=== PATIENT | male | born 1950 | race Caucasian/White ===

== ENCOUNTER 2016-09-11 07:19 | Inpatient (IN) | payer OTHER ==
[~2016-09-11] VITALS: Ht 185.4 cm; Wt 108.4 kg
--- NOTE | ~2016-09-11 | EKG ---
[address] [address] ELECTROCARDIOGRAM REPORT Name: YU REAGAN Room #: 304-P ADM IN M.R.#: [id number] Admission: 09/11/16 Attend Phys: Yoel Hernandez DO Discharge: Date of : 46 Report #: [id number] THIS REPORT FOR: //name// [facility] ED Test Date: 2016-09-11 Test Time: 07:39:58 Pat Name: YU REAGAN Department: Room: [facility] Gender: M Organizational Consultant: LUIS Hernández : 1950 Requested By: Marzena Johnson Order Number: [id number] MD: Brenden Guerrero Measurements Intervals [place] Rate: 79 P: NC: QRS: -8 QRSD: 86 T: 55 QT: 378 QTc: 434 Interpretive Statements Atrial fibrillation Inferior infarct, old No previous ECG available for comparison Electronically Signed On 09-11-2016 14:01:52 CDT by Brenden Guerrero [email or web address] <ELECTRONICALLY SIGNED> By: Brenden Guerrero MD 09/11/16 1401 0739 0739 MD DAVID Courtney
--- NOTE | ~2016-09-11 | 2DMMODE ---
[facility] [address] [place] [address] 2 D/M-MODE ECHOCARDIOGRAM Name: YU REAGAN Room #: 304-P [facility]#: [id number] Admission: 09/11/16 Attend Phys: Yoel Hernandez, Discharge: Date of : 46 Date of Service: 09/11/16 1709 Report #: [id number] THIS REPORT FOR: //name// APPROVED REPORT Study performed: 09/11/2016 12:35:37 EXAM: Comprehensive 2D, Doppler, and color-flow Echocardiogram Patient Location: Bedside Room #: 304 Status: routine Other Information Study Quality: Fair Technically limited study due to body habitus. Indications Fatigue Hx Afib, DM, CABG Echo Enhancing Agent Indication: Endocardial border delineation Agent(s) / Amount(s) Used: Definity 2 cc 2D Dimensions RVDd: 42.93 mm LVEF(%): 73.64 (>50%) IVSd: 13.02 (7-11mm) LVOT Diam: 20.29 (18-24mm) LVDd: 53.56 mm PWd: 13.09 (7-11mm) Ascending Ao: 34.50 (22-36mm) LVDs: 30.54 (25-40mm) Aortic Root: 34.84 mm Thayer's LVEF: 73.64 % Volumes Left Atrial Volume (Systole) Single Plane 4CH: 54.71 mL Single Plane 2CH: 66.32 mL LA ESV Index: 30.00 mL/m2 Aortic Valve AoV Peak Lucius.: 1.82 m/s AO Peak Gr.: 14.02 mmHg LVOT Max P.99 mmHg LVOT Max V: 1.32 m/s ALEJANDRA Vmax: 2.35 cm2 Mitral Valve [facility] [address] [place] [address] 2 D/M-MODE ECHOCARDIOGRAM Name: YU REAGAN Room #: 304-P [facility].#: [id number] Admission: 09/11/16 Attend Phys: Yoel Hernandez, Discharge: Date of : 46 Date of Service: 09/11/16 1709 Report #: [id number] MVA Planimetry: 2579.12 mm2 MV Decel. Time: 189.48 ms MV E Max Lucius.: 1.16 m/s IVRT: 78.43 ms Pulmonary Valve PV Peak Lucius.: 1.25 m/s PV Peak Gr.: 6.23 mmHg Tricuspid Valve TR Peak Lucius.: 3.56 m/s RAP Estimate: 5.00 mmHg TR Peak Gr.: 50.73 mmHg PA Pressure: 56.00 mmHg Left Ventricle The left ventricle is normal size. There is normal LV segmental wall motion. Mild concentric left ventricular hypertrophy. The left ventricular systolic function is normal. The left ventricular ejection fraction is within the normal range. LVEF is 60-65%. This study is not technically sufficient to allow evaluation of the LV diastolic function due to atrial fibrillation. Right Ventricle Right ventricle is dilated. The right ventricular systolic function is normal. Atria Left atrium appears dilated. Right atrium appears dilated. Aortic Valve Aortic valve is trileaflet, mildly calcified. No aortic regurgitation is present. There is no aortic valvular stenosis. Mitral Valve Mild mitral annular calcification. Mild mitral regurgitation. No evidence of mitral valve stenosis. Tricuspid Valve The tricuspid valve is normal in structure. There is moderate tricuspid regurgitation. The right atrial pressure is estimated at 5 mmHg. There is moderate pulmonary hypertension with an estimated PAP of 56 mmHg. Pulmonic Valve The pulmonary valve is normal in structure. Trace pulmonic regurgitation. [employer] [place] [address] [address] 2 D/M-MODE ECHOCARDIOGRAM Name: YU REAGAN Room #: 304-P [facility] IN ..#: [id number] Admission: 09/11/16 Attend Phys: Yoel Hernandez, Discharge: Date of : 46 Date of Service: 09/11/16 1709 Report #: [id number] The aortic root is normal in size. The ascending aorta is normal in size. IVC is normal in size and collapses >50% with inspiration. Pericardium There is no pericardial effusion. <Conclusion> Technically difficult study The left ventricular systolic function is normal. There is normal LV segmental wall motion. LVEF 60-65%. Both atria are mildly dilated. Aortic valve is trileaflet, mildly calcified. No aortic valvular stenosis or insufficiency. Mild mitral annular calcification, mild mitral regurgitation. There is moderate pulmonary hypertension with an estimated PAP of 55 mmHg. There is no pericardial effusion. <ELECTRONICALLY SIGNED> By: Singh Tovar MD, [facility] 09/11/16 170 08 08 Singh Tovar MD, FACC /INF
[2016-09-11 07:19] VITALS: BP 130/55
[~2016-09-11 07:19] MED LIST: ASPIR 8181 MG PO; ATORVASTATIN CA40 MG PO; BYDUREON2 MG; FENOFIBRATE160 MG PO; KLOR-CON 1010 MEQ PO; LASIX 40 MG TAB40 M2 PO; LISINOPRIL20 MG PO; METFORMIN HCL500 MG PO; MICRONASE5 MG PO; NEURONTIN 300300 M1 PO; PRILOSEC OTC20 MG PO; SOTALOL80 MG PO; TRAZODONE HCL50 MG PO
[2016-09-11 07:44] LABS: ABSOLUTE NEUTROPHILS 9.4 thou/uL (1.4-8.2); BASOPHILS 0.4 % (0.0-2.0); EOSINOPHILS 0.6 % (0.0-3.0); HEMATOCRIT 33.9 % (42.0-52.0); HEMOGLOBIN 11.7 gm/dL (14.0-18.0); LYMPHOCYTES 2.8 % (24.0-44.0); MCHC 34.4 g/dL (28.0-37.0); MCV 90.2 fL (80.0-100.0); MONOCYTES 7.5 % (1.0-8.0); PLATELET COUNT 131 thou/uL (150-400); POLYS 88.7 % (36.0-66.0); RBC 3.76 mil/uL (4.50-6.00); RDW 14.7 % (10.5-14.5); WBC 10.6 thou/uL (4.0-11.0)
[2016-09-11 07:45] LABS: MANUAL DIFF NO
[2016-09-11 07:57] LABS: ANION GAP 7 mmol/L (7-16); BUN 14 mg/dL (7-18); CALCIUM 9.2 mg/dL (8.5-10.1); CHLORIDE 99 mmol/L (98-107); CO2 26 mmol/L (21-32); CREATININE 1.1 mg/dL (0.7-1.3); GLUCOSE 181 mg/dL (74-106); POTASSIUM 3.9 mmol/L (3.5-5.1); SODIUM 132 mmol/L (136-145)
[2016-09-11 07:59] LABS: TROPONIN-I < 0.04 ng/mL (<0.04-0.07)
[2016-09-11 11:50] VITALS: BP 129/58
[2016-09-11 12:30] VITALS: BP 119/50
[2016-09-11 14:33] LABS: ALBUMIN 3.6 g/dL (3.4-5.0); DIRECT BILIRUBIN 0.2 mg/dL (<0.1-0.3); TOTAL BILIRUBIN 0.7 mg/dL (<0.1-1.0); TOTAL PROTEIN 6.5 g/dL (6.4-8.2)
[2016-09-11 15:39] LABS: CHOLESTEROL 107 mg/dL (<200); HDL CHOLESTEROL 48 mg/dL (>40); LDL CHOLESTEROL 50 mg/dL (<100); TC:HDL 2.2 Ratio (Not establshd); TRIGLYCERIDE 49 mg/dL (<150); VLDL 10 mg/dL (<40)
[2016-09-11 15:58] VITALS: BP 160/88
[2016-09-11] MEDS ORDERED: ATORVASTATIN CA40 MG PO (18:19)
[2016-09-11] MEDS ORDERED: LIORESAL 10 MG10 MG PO (18:19)
[2016-09-11] MEDS ORDERED: BACLOFEN 10MG T10 MG PO (18:24)
[2016-09-11] MEDS ORDERED: FOLBIC RF TABL1 EACH PO (18:26)
[2016-09-11] MEDS ORDERED: PROBIOTIC1 EAC1 PO (18:26)
[2016-09-11] MEDS ORDERED: ELIQUIS5 MG PO (18:27)
[2016-09-11] MEDS ORDERED: BENTYL 10 MG CA10 M1 PO (18:27)
[2016-09-11] MEDS ORDERED: LASIX 20 MG TAB20 MG PO (18:28)
[2016-09-11] MEDS ORDERED: COZAAR 50 MG TA50 M2 PO (18:28)
[2016-09-11] MEDS ORDERED: FENOFIBRATE134 MG PO (18:28)
[2016-09-11] MEDS ORDERED: NEURONTIN600 MG PO (18:29)
[2016-09-11] MEDS ORDERED: AMARYL4 MG PO ×2 (18:29→18:30)
[2016-09-11] MEDS ORDERED: JANUVIA100 MG PO (18:30)
[2016-09-11] MEDS ORDERED: LISINOPRIL20 MG PO (18:31)
[2016-09-11] MEDS ORDERED: METFORMIN HCL500 MG PO (18:31)
[2016-09-11] MEDS ORDERED: TRAMADOL 50 MG50 MG PO (18:32)
[2016-09-11] MEDS ORDERED: VICTOZA0.6 MG/0.1 SUBQ (18:32)
[2016-09-11 18:38] LABS: URINE BILIRUBIN NEGATIVE (Negative); URINE BLOOD NEGATIVE (Negative); URINE COLOR YELLOW; URINE GLUCOSE-RANDOM* NEGATIVE (Negative); URINE KETONES NEGATIVE (Negative); URINE LEUKOCYTES-REFLEX NEGATIVE (Negative); URINE PROTEIN (DIPSTICK) 1+ (Negative); URINE SPECIFIC GRAVITY 1.015 (1.003-1.035)
[2016-09-11 18:59] LABS: CASTS None Seen /LPF (None Seen); CRYSTALS None Seen /LPF (None Seen); SQUAMOUS None Seen /LPF (0-3); URINE RBC None Seen /HPF (0-2); URINE WBC-REFLEX None Seen /HPF (0-5)
[2016-09-11 19:50] VITALS: BP 136/57
[2016-09-11 23:06] LABS: FREE T4 1.1 ng/dL (0.82-1.77)
[2016-09-11 23:25] VITALS: BP 133/61
[2016-09-12 03:19] LABS: GLYCOHEMOGLOBIN (HGB A1C) 7.8 % (4.8-5.6)
[2016-09-12 04:00] VITALS: BP 128/50
[2016-09-12 08:09] VITALS: BP 16/69
[2016-09-12 16:28] VITALS: BP 105/59
[2016-09-12 20:00] VITALS: BP 147/56
[2016-09-13 04:00] VITALS: BP 130/60
[2016-09-13 05:49] LABS: HEMATOCRIT 31.9 % (42.0-52.0); HEMOGLOBIN 10.9 gm/dL (14.0-18.0); MCH 30.1 pg (26.0-34.0); MCV 88.6 fL (80.0-100.0); RBC 3.6 mil/uL (4.50-6.00); RDW 15.1 % (10.5-14.5); WBC 3.3 thou/uL (4.0-11.0)
[2016-09-13 06:06] LABS: ALBUMIN 3.1 g/dL (3.4-5.0); CALCIUM 8.4 mg/dL (8.5-10.1); PHOSPHORUS 2.7 mg/dL (2.5-4.9); POTASSIUM 3.8 mmol/L (3.5-5.1)
[2016-09-13 08:50] VITALS: BP 159/60
[2016-09-13 19:29] VITALS: BP 140/51
[2016-09-14 04:16] VITALS: BP 117/63
[2016-09-14 04:52] LABS: HEMATOCRIT 31.6 % (42.0-52.0); HEMOGLOBIN 10.7 gm/dL (14.0-18.0); MCH 30.2 pg (26.0-34.0); MCHC 33.8 g/dL (28.0-37.0); MCV 89.2 fL (80.0-100.0); PLATELET COUNT 103 thou/uL (150-400); RBC 3.54 mil/uL (4.50-6.00); RDW 14.8 % (10.5-14.5); WBC 3.4 thou/uL (4.0-11.0)
[2016-09-14 04:54] LABS: MANUAL DIFF YES
[2016-09-14 05:08] LABS: CALCIUM 8.5 mg/dL (8.5-10.1); CREATININE 0.8 mg/dL (0.7-1.3); PHOSPHORUS 3.1 mg/dL (2.5-4.9); POTASSIUM 3.4 mmol/L (3.5-5.1)
[2016-09-14 07:28] VITALS: BP 155/63
[2016-09-14 08:27] LABS: ABSOLUTE NEUTROPHILS 1.6 thou/uL (1.4-8.2); ANISOCYTOSIS 1+; OVALOCYTES FEW; TOTAL CELL COUNT 100
[2016-09-14] MEDS ORDERED: METOPROLOL SUCC50 MG PO (09:39)
[2016-09-14 11:58] VITALS: BP 155/63
== END 2016-09-14 14:01 | disposition home or self-care (01) | DRG 871 ==
LOC: ER 07:19 → 3N 09:29 → EROBS 09:29 → 3N 11:53
PROVIDERS: Emergency Medicine; Hospitalist; Psychiatry & Neurology Neurology; Specialist
DX: A41.9 Sepsis, unspecified organism (principal); D61.811 Other drug-induced pancytopenia; E44.1 Mild protein-calorie malnutrition; R53.1 Weakness; E11.9 Type 2 diabetes mellitus without complications; I48.91 Unspecified atrial fibrillation; I25.10 Atherosclerotic heart disease of native coronary artery without angina pectoris; R50.9 Fever, unspecified; I10 Essential (primary) hypertension; E78.5 Hyperlipidemia, unspecified; E78.00 Pure hypercholesterolemia, unspecified; T50.995A Adverse effect of other drugs, medicaments and biological substances, initial encounter; B34.9 Viral infection, unspecified; Z53.29 Procedure and treatment not carried out because of patient's decision for other reasons; M19.072 Primary osteoarthritis, left ankle and foot; L84 Corns and callosities; L53.9 Erythematous condition, unspecified; M10.9 Gout, unspecified; Z95.1 Presence of aortocoronary bypass graft; Z88.2 Allergy status to sulfonamides; I25.2 Old myocardial infarction; Z79.82 Long term (current) use of aspirin; Z79.84 Long term (current) use of oral hypoglycemic drugs; Z79.899 Other long term (current) drug therapy; Z91.81 History of falling; Z79.01 Long term (current) use of anticoagulants; Z90.49 Acquired absence of other specified parts of digestive tract
CPT/HCPCS: 10096